=== PATIENT | female | born 1940 | race Asian ===

== ENCOUNTER 2017-03-17 14:58 | Emergency (ER) | payer MEDICARE ==
--- NOTE | 2017-03-17 15:22 | ED Physician Documentation ---
History of Present Illness - Stated complaint Stated Complaint: FEMALE - Chief complaint Chief Complaint: General - History obtained from History obtained from: Patient, Family - History of Present Illness Timing: Other (77-year-old woman who lives in [place] and is visiting locally. She was admitted from February 16- at a hospital in [place]. She brings the records with her. She had hematochezia. According the records her hemoglobin dropped from 11-7.4 during the stay and she was transfused 2 units. She had a colonoscopy showing diverticulosis but no obvious source of bleeding. She has not had any further hematochezia until this morning when she had hematochezia with her bowel movement. It is painless. No further hematochezia at this point.) Review of Systems Ten Systems: 10 systems reviewed and negative Constitutional: reports: Reviewed and negative Throat: reports: Reviewed and negative Cardiac: reports: Reviewed and negative Respiratory: reports: Reviewed and negative PD PAST MEDICAL HISTORY - Past Medical History Past Medical History: Yes Cardiovascular: Hypertension, High cholesterol Endocrine/Autoimmune: Type 2 diabetes, HyPOthyroidism GI: GERD Other Past Medical History: breast CA - Past Surgical History Past Surgical History: Yes General: Cholecystectomy /[employer]ER: section - Present Medications Home Medications: Ambulatory Orders Medication Instructions Recorded Confirmed Amlodipine Besylate 5 mg PO DAILY 03/17/17 03/17/17 Aspirin Chewable [[place] 81 mg PO DAILY 03/17/17 03/17/17 Aspirin] Atenolol [Tenormin] 25 mg PO DAILY 03/17/17 03/17/17 Fenofibrate [Tricor] 48 mg PO QD 03/17/17 03/17/17 Levothyroxine [Synthroid] 88 mcg PO QDAC 03/17/17 03/17/17 Losartan Potassium 50 mg PO 03/17/17 Metformin HCl [Fortamet] 500 mg PO BID 03/17/17 03/17/17 Omeprazole [PriLOSEC] 20 mg PO DAILY 03/17/17 03/17/17 Sitagliptin Phosphate [Januvia] 50 mg PO 03/17/17 cloNIDine [Catapres] 0.1 mg PO ONCE 03/17/17 03/17/17 - Allergies Allergies/Adverse Reactions: Allergies Allergy/AdvReac Type Severity Reaction Status Date / Time No Known Drug Allergies Allergy Verified 03/17/17 15:04 - Social History Does the pt smoke?: No Smoking Status: Never smoker Does the pt drink ETOH?: No Does the pt have substance abuse?: No - Family History Family history: reports: Non contributory - Immunizations Immunizations are current?: Yes PD ED PE NORMAL - Vitals Vital signs reviewed: Yes - General General: Alert and oriented X 3, No acute distress - HEENT HEENT: PERRL, EOMI - Neck Neck: Supple, no meningeal sign, No bony TTP - Cardiac Cardiac: RRR, Other (2/6 decresendo systolic mmr) - Respiratory Respiratory: No respiratory distress, Clear bilaterally - Abdomen Abdomen: Normal bowel sounds, Soft, Non tender - Rectal Rectal: Other (brown but guiaiac pos stool) - Extremities Extremities: No edema, No calf tenderness / cord - Neuro Neuro: Alert and oriented X 3, Normal speech - Psych Psych: Normal mood, Normal affect Results - Vitals Vitals: Vital Signs - 24 hr 03/17/17 03/17/17 15:04 16:29 Temperature 36.1 C L Heart Rate 102 H 96 Respiratory 16 14 Rate Blood Pressure 150/78 H 134/49 H O2 Saturation 99 98 Oxygen O2 Source Room air - Labs Labs: Laboratory Tests 03/17/17 03/17/17 03/17/17 15:34 15:34 15:34 WBC 7.2 RBC 3.73 L Hgb 10.8 L Hct 31.8 L MCV 85.2 MCH 28.9 MCHC 33.9 RDW 14.9 Plt Count 232 MPV 7.4 L Neut # 5.2 Lymph # 1.2 L [place] # 0.7 Eos # 0.0 Baso # 0.1 Absolute Nucleated RBC 0.00 Nucleated RBC % 0.0 PT 11.4 INR 1.0 Sodium 129 L Potassium 4.2 Chloride 93 L Carbon Dioxide 25 Anion Gap 11.0 BUN 16 Creatinine 1.0 Estimated GFR (MDRD) 53 L Glucose 165 H Calcium 9.3 Total Bilirubin 0.6 AST 26 ALT 19 Alkaline Phosphatase 52 Total Protein 7.6 Albumin 4.2 Globulin 3.4 Albumin/Globulin Ratio 1.2 Lipase 42 Blood Type Antibody Screen 03/17/17 03/17/17 16:00 18:30 WBC RBC Hgb 10.7 L Hct 33.0 L MCV MCH MCHC RDW Plt Count MPV Neut # Lymph # [place] # Eos # Baso # Absolute Nucleated RBC Nucleated RBC % PT INR Sodium Potassium Chloride Carbon Dioxide Anion Gap BUN Creatinine Estimated GFR (MDRD) Glucose Calcium Total Bilirubin AST ALT Alkaline Phosphatase Total Protein Albumin Globulin Albumin/Globulin Ratio Lipase Blood Type O POSITIVE Antibody Screen NEGATIVE PD MEDICAL DECISION MAKING - ED course ED course: Her hemoglobin is the same as when she was discharged from the hospital in [place] initially. She was observed for 2 hours with no episodes of further bleeding and a repeat H&H was stable. I think she is stable for discharge at this juncture but will return for further episodes of bleeding. She is advised to increase fiber and water intake and keep her stools soft. Departure - Departure Disposition: 01 Home, Self Care Clinical Impression: Hematochezia Condition: Good Record reviewed to determine appropriate education?: Yes Instructions: ED Hematochezia Stable Comments: Note made that you have a systolic heart murmur, mention this to your doctor when you return home. As discussed drink plenty of water and eat a high-fiber diet with low meat and cheese. Return for further episodes of bleeding and follow-up with your doctor on return home.
[2017-03-17 15:47] LABS: BASOPHILS # (AUTO) 0.1 10^3/uL (0.0-0.1); EOSINOPHILS % (AUTO) 0.2 %; HCT - HEMATOCRIT 31.8 % (37.0-47.0); HGB - HEMOGLOBIN 10.8 g/dL (12.0-16.0); LYMPHOCYTES # (AUTO) 1.2 10^3/uL (1.5-3.5); LYMPHOCYTES % (AUTO) 16.9 %; MEAN CORPUSCULAR HEMOGLOBIN 28.9 pg (27.0-31.0); MEAN CORPUSCULAR HGB CONC 33.9 g/dL (32.0-36.0); MEAN CORPUSCULAR VOLUME 85.2 fL (81.0-99.0); MEAN PLATELET VOLUME 7.4 fL (7.9-10.8); MONOCYTES # (AUTO) 0.7 10^3/uL (0.0-1.0); MONOCYTES % (AUTO) 9.5 %; NEUTROPHILS # (AUTO) 5.2 10^3/uL (1.5-6.6); NEUTROPHILS % (AUTO) 72.4 %; RED BLOOD COUNT 3.73 10^6/uL (4.20-5.40); RED CELL DISTRIBUTION WIDTH 14.9 % (12.0-15.0); UNCORRECTED WHITE BLOOD COUNT 7.2 x10^3/uL; WHITE BLOOD COUNT 7.2 x10^3/uL (4.8-10.8)
[2017-03-17 16:03] LABS: ALBUMIN/GLOBULIN RATIO 1.2 (1.0-2.2); BILIRUBIN,TOTAL 0.6 mg/dL (0.2-1.0); CALCIUM 9.3 mg/dL (8.5-10.3); POTASSIUM 4.2 mmol/L (3.5-5.0); TOTAL PROTEIN 7.6 g/dL (6.7-8.2)
[2017-03-17 16:15] LABS: PT - PROTHROMBIN TIME 11.4 secs (9.9-12.6)
[2017-03-17 18:40] LABS: HGB - HEMOGLOBIN 10.7 g/dL (12.0-16.0)
[2017-03-17 18:59] VITALS: BP 124/70
== END 2017-03-17 18:59 | disposition home or self-care (01) ==
LOC: ED 14:58
DX: K92.1 Melena (principal); I10 Essential (primary) hypertension; E78.00 Pure hypercholesterolemia, unspecified; E11.9 Type 2 diabetes mellitus without complications; Z79.84 Long term (current) use of oral hypoglycemic drugs; E03.9 Hypothyroidism, unspecified; K21.9 Gastro-esophageal reflux disease without esophagitis; Z85.3 Personal history of malignant neoplasm of breast; Z87.19 Personal history of other diseases of the digestive system; Z79.82 Long term (current) use of aspirin
CPT/HCPCS: 36415; 80053; 83690; 85014; 85018; 85025; 85610; 86850; 86900; 86901; 99283